=== PATIENT | male | born 1955 | race Caucasian/White ===

== ENCOUNTER 2016-12-03 12:30 | Emergency (ER) | payer SELFPAY ==
[~2016-12-03] VITALS: Ht 188 cm; Wt 87.5 kg
[2016-12-03 13:49] LABS: HEMATOCRIT 45.7 % (38.0-50.0); MCHC 33.9 G/DL (30.0-36.0); MCV 97.2 FL (86-99); MEAN PLAT.VOLUME 10.1 uM^3 (9.0-12.4); PLATELET COUNT 307 K/uL (156-360); RBC DIS.WIDTH-CV 12.6 % (11.8-14.6); RBC DIS.WIDTH-SD 43.8 % (39-53); WHITE BLOOD COUNT 7.6 K/uL (4.1-10.2)
[2016-12-03 14:01] LABS: CHLORIDE 105 mEq/L (99-109); POTASSIUM 4.9 mEq/L (3.7-5.4); SODIUM 140 mEq/L (136-147)
[2016-12-03 14:02] LABS: GLUCOSE 96 mg/dL (70-99)
[2016-12-03 14:04] LABS: ANION GAP 8 MEQ/L (2-14)
[2016-12-03 14:06] LABS: GFR ESTIMATE (CALCULATED) > 59 mL/min/
[2016-12-03 14:07] LABS: UREA NITROGEN (BUN) 11 mg/dL (9-23)
[2016-12-03] MEDS ORDERED: PROZAC40 MG PO (14:50)
[2016-12-03] MEDS ORDERED: XANAX0.5 MG PO (14:50)
[2016-12-03] MEDS ORDERED: ASPIR 8181 M1 PO (14:51)
[2016-12-03] MEDS ORDERED: CHERATUSSIN AC473 ML PO (17:01)
[2016-12-03] MEDS ORDERED: PREDNISONE50 MG PO (17:01)
[2016-12-03 17:15] VITALS: BP 145/79
== END 2016-12-03 17:15 | disposition home or self-care (01) ==
LOC: EME 12:30
DX: J42 Unspecified chronic bronchitis (principal); F17.210 Nicotine dependence, cigarettes, uncomplicated
CPT/HCPCS: 71020; 80048; 85027; 99281; 99284; J2930

== ENCOUNTER 2017-02-11 06:53 | Day surgery (SDC) | payer SELFPAY ==
[~2017-02-11] VITALS: Ht 188 cm; Wt 91.0 kg
[~2017-02-11 06:53] MED LIST: ASPIR 8181 M1 PO; CHERATUSSIN AC473 ML PO; PREDNISONE50 MG PO; PROZAC40 MG PO; XANAX0.5 MG PO
[2017-02-11 07:06] VITALS: BP 126/70
[2017-02-11 11:15] VITALS: BP 178/97
[2017-02-11 12:04] VITALS: BP 160/97
== END 2017-02-11 12:20 | disposition home or self-care (01) ==
LOC: SDC 06:53
DX: R49.0 Dysphonia (principal); J38.3 Other diseases of vocal cords; F32.9 Major depressive disorder, single episode, unspecified; F17.200 Nicotine dependence, unspecified, uncomplicated
CPT/HCPCS: 88305; J1100; J2250; J2710; J3010